=== PATIENT | male | born 2000 ===

== ENCOUNTER 2021-05-28 11:33 | Outpatient (CLI) | payer MEDICAID ==
[2021-05-28 13:06] LABS: #Eosinphils 0.3 10x3/uL (0.0-0.5); #Monocytes 0.6 10x3/uL (0.0-1.1); #Neutrophils 3.7 10x3/uL (1.5-8.4); %Basophils 0.4 % (0.0-2.0); %Eosinophils 4.1 % (0.0-6.0); %Lymphocytes 34.8 % (18.0-47.0); %Monocytes 8.1 % (0.0-10.0); %Neutrophils 52.2 % (40.0-75.0); Hemoglobin 15.1 g/dL (13.5-17.5); Mean Corpuscular HGB CONC 35.4 g/dL (32.0-36.0); Mean Corpuscular Volume 90.5 fl (81.2-95.1); Mean Platelet Volume 9.9 fl (7.4-10.4); Platelet Count 306 10x3/uL (150-450); RBC Distribution Width 11.3 % (11.5-14.5); Red Blood Cell (RBC) Count 4.72 10x6/uL (4.32-5.72); White Blood Cell (WBC) Count 7.1 10x3/uL (3.5-10.5)
[2021-05-28 22:56] LABS: SARS-CoV-2 PCR by NAA Not Detected (NotDetected)
== END 2021-05-28 11:34 | disposition home or self-care (01) ==
LOC: LABBT 11:33
PROVIDERS: ATTEND Orthopaedic Surgery Hand Surgery
DX: Z01.812 Encounter for preprocedural laboratory examination (principal); S62.304A Unspecified fracture of fourth metacarpal bone, right hand, initial encounter for closed fracture; S62.306A Unspecified fracture of fifth metacarpal bone, right hand, initial encounter for closed fracture; Z20.822 Contact with and (suspected) exposure to COVID-19
CPT/HCPCS: 85025; U0003; U0005

== ENCOUNTER 2021-05-31 10:57 | Day surgery (SDC) | payer OTHER ==
[2021-05-30 13:04] VITALS: BMI 28.3
[2021-05-31] MEDS ORDERED: Bupivacaine PF 0.5% 30 ML VIAL ONE (19:02)
[2021-05-31] MEDS ORDERED: Bacitracin Zinc Ointment 30 gm TUBE ONE (19:02)
[2021-05-31] MEDS ORDERED: Fentanyl 100 MCG/2 ML VIAL ONE ×3 (19:13→21:50)
[2021-05-31] MEDS ORDERED: ceFAZolin 2 GM/DEX 5% 100 ML BAG ONE (19:27)
[2021-05-31] MEDS ORDERED: Lidocaine 1% PF 5 ML VIAL ONE (19:40)
[2021-05-31] MEDS ORDERED: PROPOFOL 200 MG/20 ML VIAL ONE (19:40)
[2021-05-31] MEDS ORDERED: Ondansetron PF 4 MG/2 ML Vial ONE (21:35)
[2021-05-31] MEDS ORDERED: Ketorolac Tromethamine 30 MG/ML VIAL ONE (21:46)
[2021-05-31] MEDS ORDERED: HYDROcodone/Acetaminophen 5/325 mg Tablet ONE (22:08)
== END 2021-05-31 22:53 | disposition home or self-care (01) ==
LOC: SDC 10:57
PROVIDERS: ATTEND Orthopaedic Surgery Hand Surgery
PROC: 0PSP04Z Reposition Right Metacarpal with Internal Fixation Device, Open Approach (ICD-10-PCS; principal; 2021-05-31)
DX: S62.316A Displaced fracture of base of fifth metacarpal bone, right hand, initial encounter for closed fracture (principal); S62.344A Nondisplaced fracture of base of fourth metacarpal bone, right hand, initial encounter for closed fracture; G40.909 Epilepsy, unspecified, not intractable, without status epilepticus; Z79.1 Long term (current) use of non-steroidal anti-inflammatories (NSAID); Z79.899 Other long term (current) drug therapy; W22.09XA Striking against other stationary object, initial encounter
CPT/HCPCS: 76000; C1713; J1885; J2405; J2704; J3010; S0020

== ENCOUNTER 2021-10-02 17:50 | Emergency (ER) | payer OTHER | END 2021-10-02 19:59 | disposition home or self-care (01) | LOC: ERS 17:50 | DX: T84.220A Displacement of internal fixation device of bones of hand and fingers, initial encounter (principal) ==

== ENCOUNTER 2021-11-12 19:53 | Emergency (ER) | payer OTHER ==
[2021-11-12] MEDS ORDERED: Xylocaine 1% w/ Epi 1:100K 10 ML VIAL ONE (21:25)
[2021-11-12] MEDS ORDERED: levETIRAcetam in NS 200 ML ONE (21:39)
== END 2021-11-12 22:48 | disposition home or self-care (01) ==
LOC: ERS 19:53
DX: S51.812A Laceration without foreign body of left forearm, initial encounter (principal); F17.210 Nicotine dependence, cigarettes, uncomplicated; W22.8XXA Striking against or struck by other objects, initial encounter; Z79.899 Other long term (current) drug therapy
CPT/HCPCS: 12032; 96365; J1953